=== PATIENT | male | born 1975 | race Two or more races ===

== ENCOUNTER 2022-11-17 12:37 | Emergency (ER) | payer BC, OTHER ==
[~2022-11-17] VITALS: Ht 182.9 cm; Wt 80.0 kg
[2022-11-17] MEDS ORDERED: HYDROcodone-ACET 10/325MG TAB PO ONE (13:00)
[2022-11-17] MEDS ORDERED: ONDANSETRON ODT 4 MG TAB PO ONE (13:00)
[2022-11-17 13:35] VITALS: BP 122/81
[2022-11-17] MEDS ORDERED: SILVER SULFADIAZINE 1 % TOPICAL CREAM 50GM TOP ONE (14:45)
[2022-11-17] MEDS ORDERED: CEPH500C PO (14:58)
[2022-11-17] MEDS ORDERED: IBUP-1456 PO (14:58)
== END 2022-11-17 15:02 | disposition home or self-care (01) ==
LOC: ER 12:37
DX: T23.232A Burn of second degree of multiple left fingers (nail), not including thumb, initial encounter (principal); X17.XXXA Contact with hot engines, machinery and tools, initial encounter; Y93.89 Activity, other specified; Y92.89 Other specified places as the place of occurrence of the external cause; Y99.8 Other external cause status
CPT/HCPCS: 16020; 99283; Q0162